=== PATIENT | male | born 1930 | race Caucasian/White ===

== ENCOUNTER → 2016-12-20 | Outpatient (CLI) | payer MEDICARE, OTHER ==
[~2016-12-20] MED LIST: GUAI600T3 PO; HC1O30 TOP; OXYC-200 PO; PRD20T PO; PRED2.5T2 PO; PROP1DRO OP; TIMO5DRO26 OP; TML5OP2.5 OU; TRIA1TAB2 PO; VIT1CAPS43 PO
--- NOTE | 2016-12-20 19:49 | Diagnostic Imaging Report ---
INDICATION: Bladder capacity. AVAILABLE COMPARISONS: None. TECHNIQUE: Multiple real-time grayscale images are obtained through the urinary bladder pre and post void condition. FINDINGS: Prevoid volume of the urinary bladder was 170 cc. It was unremarkable. No urinary bladder diverticula. Postvoid imaging showed no residual. IMPRESSION: 1. No postvoid residual. Dictated by: Dictated on workstation # [id number]
== END ==
LOC: RAD 14:41
PROVIDERS: ATTEND Family Medicine
DX: R35.1 Nocturia (principal)
CPT/HCPCS: 51798

== ENCOUNTER → 2017-01-31 | Outpatient (CLI) | payer MEDICARE, OTHER | LOC: EMS 05:47 | DX: Z53.20 Procedure and treatment not carried out because of patient's decision for unspecified reasons (principal) ==